=== PATIENT | male | born 1940 | race American Indian/Alaskan Native ===

== ENCOUNTER 2019-02-14 10:50 | Emergency (ER) | payer MEDICARE ==
[2019-02-14] MEDS ORDERED: Sodium Chloride 0.9% 10 ML Syringe FLUSH PRN (11:07)
--- NOTE | 2019-02-14 11:18 | EDM.PDOC ---
ED HPI GENERAL MEDICAL PROBLEM - General Chief Complaint: Abdominal Pain Stated Complaint: DIZZY AND FEELS HE CANT RELEASE ABD GAS Time Seen by Provider: 02/14/19 11:02 Source of Information: Reports: Patient, Family History Limitations: Reports: No Limitations - History of Present Illness INITIAL COMMENTS - FREE TEXT/NARRATIVE: Patient is an unfortunate 78-year-old male who presents today with complaint of constipation. Patient reports that he has not had a bowel movement the last 4 days despite taking laxatives at home. Patient has chronic renal failure and is on hemodialysis he is scheduled to have hemodialysis later today. Patient reports he does have some minor abdominal cramping and some nausea no vomiting is able to tolerate by mouth food and fluids well. No chest pain or shortness of breath no cough congestion or runny nose. No medical emesis no hematochezia and no melena patient also reports that after he eats he has dizzy spells this happens occasionally and isn't matter what he eats for few minutes and then it resolves. Patient took milk of magnesia at home with no improvement in symptoms - Related Data Allergies Allergy/AdvReac Type Severity Reaction Status Date / Time azithromycin [From Zithromax] Allergy Hypertensio Verified 02/14/19 11:07 n Home Meds: Home Meds KCl/Na Sulf,Bicarb,Cl/PEG 3351 [GoLytely] 4,000 ml PO ONETIME #1 bottle [Rx] ED ROS GENERAL - Review of Systems Review Of Systems: See Below Constitutional: Denies: Fever, Chills GI/Abdominal: Reports: Abdominal Pain, Constipation, Nausea. Denies: Melena, Vomiting Neurological: Reports: Dizziness. Denies: Confusion ED EXAM, GI/ABD - Physical Exam Exam: See Below Exam Limited By: No Limitations General Appearance: Alert, WD/WN, Mild Distress Ears: Normal External Exam, Normal Canal, Hearing Grossly Normal, Normal TMs Nose: Normal Inspection, Normal Mucosa, No Blood Throat/Mouth: Normal Inspection, Normal Lips, Normal Teeth, Normal Gums, Normal Oropharynx, Normal Voice, No Airway Compromise Head: Atraumatic, Normocephalic Neck: Normal Inspection, Supple, Non-Tender, Full Range of Motion Respiratory/Chest: No Respiratory Distress, Lungs Clear, Normal Breath Sounds, No Accessory Muscle Use, Chest Non-Tender, Other (Johnnie catheter right chest) Cardiovascular: Normal Peripheral Pulses, Regular Rate, Rhythm, No Edema, No Gallop, No JVD, No Murmur, No Rub GI/Abdominal Exam: Normal Bowel Sounds, Soft, Non-Tender, No Organomegaly, No Distention, No Abnormal Bruit, No Mass, Pelvis Stable Back Exam: Normal Inspection, Full Range of Motion, NT Extremities: Normal Inspection, Normal Range of Motion, Non-Tender, No Pedal Edema, Normal Capillary Refill, Other (AV graft left upper extremity positive [place] positive thrill) Neurological: Alert Psychiatric: Normal Affect Skin Exam: Warm, Dry, No Rash Course - Vital Signs Last Recorded V/S: Last Vital Signs Temp 97.6 F 02/14/19 11:00 Pulse 53 L 02/14/19 11:00 Resp 20 02/14/19 11:00 BP 126/59 L 02/14/19 11:00 Pulse Ox 98 02/14/19 11:00 - Orders/Labs/Meds Orders: Active Orders 24 hr Category Date Time Status Abdomen 2V AP Flat Upright [CR] Stat Exams 02/14/19 11:07 Taken Sodium Chloride 0.9% [Saline Flush] Med 02/14/19 11:07 Active 10 ml FLUSH ASDIRECTED PRN Saline Lock Insert [OM.PC] Stat Oth 02/14/19 11:07 Ordered Medication Orders Sodium Chloride (Saline Flush) 10 ml FLUSH ASDIRECTED PRN PRN Reason: Keep Vein Open Labs: Laboratory Tests 02/14/19 02/14/19 Range/Units 11:25 11:25 WBC 7.34 (4.23-9.07) K/mm3 RBC 4.07 L (4.63-6.08) M/mm3 Hgb 10.7 L (13.7-17.5) gm/dl Hct 34.2 L (40.1-51.0) % MCV 84.0 (79.0-92.2) fl MCH 26.3 (25.7-32.2) pg MCHC 31.3 L (32.2-35.5) g/dl RDW Std Deviation 46.7 H (35.1-43.9) fL Plt Count 258 (163-337) K/mm3 MPV 8.9 L (9.4-12.3) fl Neut % (Auto) 64.3 (34.0-67.9) % Lymph % (Auto) 14.9 L (21.8-53.1) % [place] % (Auto) 9.0 (5.3-12.2) % Eos % (Auto) 10.9 H (0.8-7.0) Baso % (Auto) 0.8 (0.1-1.2) % Neut # (Auto) 4.72 (1.78-5.38) K/mm3 Lymph # (Auto) 1.09 L (1.32-3.57) K/mm3 [place] # (Auto) 0.66 (0.30-0.82) K/mm3 Eos # (Auto) 0.80 H (0.04-0.54) K/mm3 Baso # (Auto) 0.06 (0.01-0.08) K/mm3 Sodium 141 (136-145) mEq/L Potassium 3.8 (3.5-5.1) mEq/L Chloride 101 (98-107) mEq/L Carbon Dioxide 31 (21-32) mEq/L Anion Gap 12.8 (5-15) BUN 27 H D (7-18) mg/dL Creatinine 4.6 H D (0.7-1.3) mg/dL Est Cr Clr Drug Dosing 11.56 mL/min Estimated GFR (MDRD) 12 (>60) mL/min BUN/Creatinine Ratio 5.9 L (14-18) Glucose 152 H (83-115) mg/dL Calcium 9.3 (8.5-10.1) mg/dL Total Bilirubin 0.5 (0.2-1.0) mg/dL AST 17 (15-37) U/L ALT 18 (16-63) U/L Alkaline Phosphatase 104 (46-116) U/L Total Protein 6.5 (6.4-8.2) g/dl Albumin 3.4 (3.4-5.0) g/dl Globulin 3.1 gm/dL Albumin/Globulin Ratio 1.1 (1-2) Meds: Medications Generic Name Dose Route Start Last Admin Trade Name Freq PRN Reason Stop Dose Admin Sodium Chloride 10 ml 02/14/19 11:07 Saline Flush FLUSH ASDIRECTED PRN Keep Vein Open - Re-Assessments/Exams Free Text/Narrative Re-Assessment/Exam: 02/14/19 12:09 Two-view abdomen interpreted by me TONI Departure - Departure Time of Disposition: 12:10 Disposition: Home, Self-Care 01 Condition: Good Clinical Impression: Constipation Qualifiers: Constipation type: unspecified constipation type Qualified Code(s): K59.00 - Constipation, unspecified - Discharge Information Prescriptions: KCl/Na Sulf,Bicarb,Cl/PEG 3351 [GoLytely] 4,000 ml PO ONETIME #1 bottle Referrals: PCP,Not In Area [Primary Care Provider] - Forms: ED Department Discharge Additional Instructions: Home, rest, if no results from magnesium citrate in 12 hours fill and take prescription, return as needed for worsening condition Sepsis Event Note - Evaluation Sepsis Screening Result: No Definite Risk - Focused Exam Vital Signs: Vital Signs Temp Pulse Resp BP Pulse Ox 02/14/19 11:00 97.6 F 53 L 20 126/59 L 98 Date Exam was Performed: 02/14/19 Time Exam was Performed: 12:09 - My Orders Last 24 Hours: My Active Orders 02/14/19 11:07 Abdomen 2V AP Flat Upright [CR] Stat Sodium Chloride 0.9% [Saline Flush] 10 ml FLUSH ASDIRECTED PRN Saline Lock Insert [OM.PC] Stat - Assessment/Plan Last 24 Hours: My Active Orders 02/14/19 11:07 Abdomen 2V AP Flat Upright [CR] Stat Sodium Chloride 0.9% [Saline Flush] 10 ml FLUSH ASDIRECTED PRN Saline Lock Insert [OM.PC] Stat
[2019-02-14] MEDS ORDERED: Magnesium Citrate Solution 296 ML Bottle PO ONE (12:11)
--- NOTE | 2019-02-14 14:09 | CR ---
Abdomen: Supine and upright views of the abdomen were obtained. Comparison: No previous abdominal x-ray. Mild diffuse disc space narrowing within the spine with endplate osteophytes. Surgical clips are seen within the pelvis. Vascular calcification is noted. Bowel gas pattern appears normal. No free air is seen. Impression: 1. Findings as noted above. 2. Nothing acute is appreciated on two-view abdominal x-ray. Diagnostic code #2 This report was dictated in [place] Standard Time
== END 2019-02-14 12:45 | disposition home or self-care (01) ==
LOC: JD.ED 10:50
DX: K59.00 Constipation, unspecified (principal); N18.9 Chronic kidney disease, unspecified; Z99.2 Dependence on renal dialysis; Z88.1 Allergy status to other antibiotic agents
CPT/HCPCS: 36415; 74019; 80053; 82962; 85025; 99283; A9270

== ENCOUNTER 2019-04-26 14:32 | Emergency (ER) | payer MEDICARE ==
--- NOTE | 2019-04-26 15:07 | EDM.PDOC ---
ED HPI GENERAL MEDICAL PROBLEM - General Chief Complaint: Chest Pain Stated Complaint: SOB Time Seen by Provider: 04/26/19 15:03 - History of Present Illness INITIAL COMMENTS - FREE TEXT/NARRATIVE: 78-year-old male presents the emergency room with some shortness of breath. Patient has a nebulizer at home but does not always use it he has been off his steroids and albuterol for a while now. Today's hoping to get some oral steroids. Patient has a little bit of a cough that is nonproductive he denies fevers or chills. He came over here after finishing up dialysis today. The patient has been on dialysis since his last December. His leg edema does not seem to be getting worse. He is just noticed increasing wheezing and shortness of breath he does not have a productive cough. Right Chest Pain Score (Numeric/FACES): 6 - Related Data Allergies Allergy/AdvReac Type Severity Reaction Status Date / Time azithromycin [From Zithromax] Allergy Hypertensio Verified 04/26/19 14:45 n Home Meds: Home Meds Carvedilol [Coreg] 25 mg PO DAILY 04/26/19 [History] Furosemide 40 mg PO BID 04/26/19 [History] hydrALAZINE [Apresoline] 10 mg PO BID 04/26/19 [History] predniSONE [Prednisone] 40 mg PO Q24H #10 tablet 04/26/19 [Rx] Past Medical History HEENT History: Reports: Cataract, Impaired Vision Other HEENT History: wears eyeglasses. Cardiovascular History: Reports: Hypertension Respiratory History: Reports: Bronchitis, Recurrent Gastrointestinal History: Reports: PUD Genitourinary History: Reports: Chronic Renal Insuffiency, Dialysis, Renal Disease Musculoskeletal History: Reports: Fracture, Other (See Below) Other Musculoskeletal History: Chronic Right Knee Pain Neurological History: Reports: None Psychiatric History: Reports: None Endocrine/Metabolic History: Reports: Diabetes, Type II, Obesity/BMI 30+ Hematologic History: Reports: Anemia, Iron Deficiency Immunologic History: Reports: None Oncologic (Cancer) History: Reports: Prostate Dermatologic History: Reports: None - Infectious Disease History Infectious Disease History: Reports: Chicken Pox, Measles, Mumps - Past Surgical History HEENT Surgical History: Reports: Cataract Surgery Cardiovascular Surgical History: Reports: Coronary Artery Stent Male Surgical History: Reports: Other (See Below) Other Male Surgeries/Procedures: Dialysis Catheter and Fistula Placed Social & Family History - Tobacco Use Smoking Status *Q: Never Smoker - Caffeine Use Caffeine Use: Reports: Soda - Recreational Drug Use Recreational Drug Use: No ED ROS GENERAL - Review of Systems Review Of Systems: See Below Constitutional: Reports: No Symptoms HEENT: Reports: No Symptoms Respiratory: Reports: Shortness of Breath, Wheezing, Cough. Denies: Sputum Cardiovascular: Reports: Dyspnea on Exertion. Denies: Chest Pain Endocrine: Reports: No Symptoms GI/Abdominal: Reports: No Symptoms : Reports: No Symptoms Skin: Reports: No Symptoms Neurological: Reports: No Symptoms ED EXAM, GENERAL - Physical Exam Exam: See Below Exam Limited By: No Limitations General Appearance: Alert, No Apparent Distress Head: Atraumatic, Normocephalic Neck: Normal Inspection, Supple, Non-Tender, Full Range of Motion Respiratory/Chest: No Respiratory Distress, Decreased Breath Sounds, Wheezing. No: Crackles, Rales, Rhonchi Cardiovascular: Regular Rate, Rhythm, No Murmur GI/Abdominal: Normal Bowel Sounds, Soft, Non-Tender Back Exam: Normal Inspection. No: CVA Tenderness (L), CVA Tenderness (R) Extremities: Normal Inspection, Pedal Edema (Mild bilaterally) Neurological: Alert, Oriented, Normal Cognition Course - Vital Signs Last Recorded V/S: Last Vital Signs Temp 36.4 C 04/26/19 14:38 Pulse 59 L 04/26/19 14:38 Resp 16 04/26/19 14:38 BP 185/65 H 04/26/19 14:38 Pulse Ox 96 04/26/19 15:26 - Orders/Labs/Meds Orders: Active Orders 24 hr Category Date Time Status EKG Documentation Completion [RC] ASDIRECTED Care 04/26/19 14:42 Active RT Aerosol Therapy [RC] ASDIRECTED Care 04/26/19 15:26 Active Chest 1V Frontal [CR] Stat Exams 04/26/19 14:36 Taken EKG 12 Lead [EK] Stat Ther 04/26/19 14:42 Ordered Labs: Laboratory Tests 04/26/19 04/26/19 04/26/19 Range/Units 14:45 14:45 14:45 WBC 9.21 H (4.23-9.07) K/mm3 RBC 4.62 L (4.63-6.08) M/mm3 Hgb 12.4 L D (13.7-17.5) gm/dl Hct 37.8 L (40.1-51.0) % MCV 81.8 (79.0-92.2) fl MCH 26.8 (25.7-32.2) pg MCHC 32.8 (32.2-35.5) g/dl RDW Std Deviation 45.0 H (35.1-43.9) fL Plt Count 152 L D (163-337) K/mm3 MPV 10.1 (9.4-12.3) fl Neut % (Auto) 77.7 H (34.0-67.9) % Lymph % (Auto) 7.9 L (21.8-53.1) % [place] % (Auto) 2.9 L (5.3-12.2) % Eos % (Auto) 10.7 H (0.8-7.0) Baso % (Auto) 0.4 (0.1-1.2) % Neut # (Auto) 7.14 H (1.78-5.38) K/mm3 Lymph # (Auto) 0.73 L (1.32-3.57) K/mm3 [place] # (Auto) 0.27 L (0.30-0.82) K/mm3 Eos # (Auto) 0.99 H (0.04-0.54) K/mm3 Baso # (Auto) 0.04 (0.01-0.08) K/mm3 Manual Slide Review Abnormal smear D-Dimer, Quantitative 9.39 H (0.19-0.50) mg/L Sodium 140 (136-145) mEq/L Potassium 4.2 (3.5-5.1) mEq/L Chloride 102 (98-107) mEq/L Carbon Dioxide 30 (21-32) mEq/L Anion Gap 12.2 (5-15) BUN 41 H (7-18) mg/dL Creatinine 3.8 H (0.7-1.3) mg/dL Est Cr Clr Drug Dosing 13.99 mL/min Estimated GFR (MDRD) 15 (>60) mL/min BUN/Creatinine Ratio 10.8 L (14-18) Glucose 111 (83-115) mg/dL Calcium 9.1 (8.5-10.1) mg/dL Total Bilirubin 0.7 (0.2-1.0) mg/dL AST 25 (15-37) U/L ALT 32 (16-63) U/L Alkaline Phosphatase 94 (46-116) U/L Troponin I < 0.017 (0.00-0.056) ng/mL Total Protein 7.7 (6.4-8.2) g/dl Albumin 3.9 (3.4-5.0) g/dl Globulin 3.8 gm/dL Albumin/Globulin Ratio 1.0 (1-2) Meds: Medications Discontinued Medications Generic Name Dose Route Start Last Admin Trade Name Freq PRN Reason Stop Dose Admin Albuterol/Ipratropium 3 ml 04/26/19 15:26 04/26/19 15:39 Duoneb 3.0-0.5 Mg/3 Ml NEB 04/26/19 15:27 3 ml ONETIME ONE Administration Prednisone 60 mg 04/26/19 15:50 04/26/19 15:55 Prednisone PO 04/26/19 15:51 60 mg ONETIME ONE Administration - Re-Assessments/Exams Free Text/Narrative Re-Assessment/Exam: 04/26/19 15:51 Feels much better after nebulizer treatment. On repeat examination he is moving air better but he still little tight and still has an occasional wheeze. But he feels much better and really wants to go home. We discussed oral steroids I think he might benefit from a brief course of them so we will go ahead and do this. He is instructed to use his steroid nebulizers as directed and he can use his albuterol nebulizers up to 4 times a day. Because of protocol labs the patient has had an elevated d-dimer. The patient has dialysis he is got significant bruising on his arm where the shunt is and the shunt is less than a month old and does not always use sometimes the temporary dialysis catheter is used. I suspect that is why the d-dimer is elevated. Has not had any recent chest pain or chest pressure nothing like pleuritic pain. He has had some shortness of breath. I discussed this with the patient in detail and he agrees not to pursue a CTA of his chest at this time. 04/26/19 16:30 He sounds a little bit better than the last time I checked him we will discharge him home. Departure - Departure Time of Disposition: 16:31 Disposition: Home, Self-Care 01 Clinical Impression: COPD (chronic obstructive pulmonary disease) Prescriptions: predniSONE [Prednisone] 40 mg PO Q24H #10 tablet Referrals: Shey Hawkins NP [Primary Care Provider] - Forms: ED Department Discharge Additional Instructions: Return to the emergency room with any questions or problems. Follow-up with your lung doctor as scheduled. Take the prednisone as directed. Start your steroid nebulizer treatment as directed every day you may use your albuterol up to 4 times a day. Sepsis Event Note - Evaluation Sepsis Screening Result: No Definite Risk - Focused Exam Vital Signs: Vital Signs Temp Pulse Resp BP Pulse Ox Pulse Ox 04/26/19 15:26 96 04/26/19 14:38 36.4 C 59 L 16 185/65 H 95 Date Exam was Performed: 04/26/19 Time Exam was Performed: 16:30 - My Orders Last 24 Hours: My Active Orders 04/26/19 14:36 Chest 1V Frontal [CR] Stat 04/26/19 14:42 EKG Documentation Completion [RC] ASDIRECTED EKG 12 Lead [EK] Stat 04/26/19 15:26 RT Aerosol Therapy [RC] ASDIRECTED - Assessment/Plan Last 24 Hours: My Active Orders 04/26/19 14:36 Chest 1V Frontal [CR] Stat 04/26/19 14:42 EKG Documentation Completion [RC] ASDIRECTED EKG 12 Lead [EK] Stat 04/26/19 15:26 RT Aerosol Therapy [RC] ASDIRECTED
[2019-04-26] MEDS ORDERED: Albuterol/Ipratropium 3.0-0.5 MG/3 ML Neb Soln NEB ONE (15:26)
[2019-04-26] MEDS ORDERED: predniSONE 20 MG Tab PO ONE (15:50)
--- NOTE | 2019-04-27 07:45 | CR ---
Chest: Portable view of the chest was obtained. Comparison: No previous chest imaging. Right-sided dialysis catheter appears to be present. Heart size is within normal limits for portable technique. Tortuous thoracic aorta is seen with atherosclerotic calcification. Bony structures are osteopenic. Degenerative change is scattered within the spine. Lungs show no acute parenchymal change. Impression: 1. Findings as noted above. 2. Nothing acute is appreciated on portable chest x-ray. Diagnostic code #2 This report was dictated in [place] Standard Time
== END 2019-04-26 16:44 | disposition home or self-care (01) ==
LOC: JD.ED 14:32
DX: J44.9 Chronic obstructive pulmonary disease, unspecified (principal); I12.9 Hypertensive chronic kidney disease with stage 1 through stage 4 chronic kidney disease, or unspecified chronic kidney disease; N18.9 Chronic kidney disease, unspecified; E11.22 Type 2 diabetes mellitus with diabetic chronic kidney disease; Z99.2 Dependence on renal dialysis; E66.9 Obesity, unspecified; Z95.5 Presence of coronary angioplasty implant and graft; Z79.899 Other long term (current) drug therapy; Z88.1 Allergy status to other antibiotic agents
CPT/HCPCS: 36415; 71045; 80053; 84484; 85025; 85379; 93005; 94640; 99285; A9270; 93010; 99283; J7620-GY

== ENCOUNTER 2019-10-10 12:24 | Emergency (ER) | payer MEDICARE ==
--- NOTE | 2019-10-10 13:29 | CR ---
Chest: Portable view of the chest was obtained. Comparison: Previous chest x-ray of 04/26/19. Slight atelectasis or possibly minimal pleural effusions. Pulmonary vessels are mildly congested. Heart is enlarged. Tortuous thoracic aorta is seen with atherosclerotic calcification. Old healed left clavicle fracture is noted. Scattered degenerative change is noted within the spine. Impression: 1. Findings felt compatible with CHF. 2. Other nonacute findings as noted above. Diagnostic code #3 Study was dictated in MDT
[2019-10-10] MEDS ORDERED: predniSONE 20 MG Tab PO ONE (13:31)
[2019-10-10] MEDS ORDERED: Furosemide 40 MG Tab PO ONE (13:31)
--- NOTE | 2019-10-10 14:05 | EDM.PDOC ---
ED HPI GENERAL MEDICAL PROBLEM - General Chief Complaint: Respiratory Problem Stated Complaint: SOB Time Seen by Provider: 10/10/19 12:38 Source of Information: Reports: Patient, RN Notes Reviewed - History of Present Illness INITIAL COMMENTS - FREE TEXT/NARRATIVE: 79 yr old male comes in with shortness of breath. He missed 1 or 2 runs of dialysis last week. He was supposed to get a run while traveling to [place] but did ot get that done. It sounds like his last dialysis was last Thursday 6 days ago. His breathing is OK at rest but he is short of breath walking. No cough, fever or chills. No chest or abd pain. - Related Data Allergies Allergy/AdvReac Type Severity Reaction Status Date / Time azithromycin [From Zithromax] Allergy Hypertensio Verified 04/26/19 14:45 n Home Meds: Home Meds Biotin/FA/Vit C/Vit B Complex [Nephrocaps] 1 tab PO DAILY 10/10/19 [History] Calcium Acetate 2 tab PO TID 10/10/19 [History] Clopidogrel Bisulfate [Plavix] 75 mg PO DAILY 10/10/19 [History] Darbepoetin Garrett [Aranesp] 25 mcg IV ASDIRECTED 10/10/19 [History] Fibrinogen/Thrombin(Human Alvino) [Evarrest 2"X4" Patch] 1,000 unit TOP ASDIRECTED 10/10/19 [History] Furosemide 40 mg PO BID 10/10/19 [History] Heparin Sodium,Porcine/PF [Heparin 2,000 Unit/2 ml Vial] 1,000 unit TUTHSA 10/10/19 [History] Heparin Sodium,Porcine/PF [Heparin 2,000 Unit/2 ml Vial] 2,000 unit IV TUTA 10/10/19 [History] Isosorbide Mononitrate [Imdur] 30 mg PO DAILY 10/10/19 [History] Ondansetron [Zofran] 2 mg IV Q4H PRN 10/10/19 [History] Simvastatin 40 mg PO DAILY 10/10/19 [History] Sod Ferric Gluc Complex/Suc [Ferrlecit 62.5 mg/5 ml Vial] 125 mg IV SA 10/10/19 [History] amLODIPine Besylate [Amlodipine Besylate] 10 mg PO DAILY 10/10/19 [History] carvediloL [Carvedilol] 12.5 mg PO BEDTIME 10/10/19 [History] carvediloL [Coreg] 25 mg PO DAILY 10/10/19 [History] hydrALAZINE [Apresoline] 10 mg PO Q8HR 10/10/19 [History] Past Medical History HEENT History: Reports: Cataract, Impaired Vision Other HEENT History: wears eyeglasses. Cardiovascular History: Reports: Hypertension Respiratory History: Reports: Bronchitis, Recurrent Gastrointestinal History: Reports: PUD Genitourinary History: Reports: Dialysis, Renal Disease Musculoskeletal History: Reports: Fracture Other Musculoskeletal History: Chronic Right Knee Pain Neurological History: Reports: None Psychiatric History: Reports: None Endocrine/Metabolic History: Reports: Diabetes, Type II Hematologic History: Reports: Anemia, Iron Deficiency Immunologic History: Reports: None Oncologic (Cancer) History: Reports: Prostate Dermatologic History: Reports: None - Infectious Disease History Infectious Disease History: Reports: Chicken Pox, Measles, Mumps - Past Surgical History HEENT Surgical History: Reports: Cataract Surgery Cardiovascular Surgical History: Reports: Coronary Artery Stent Social & Family History - Family History Family Medical History: Noncontributory - Tobacco Use Smoking Status *Q: Former Smoker Used Tobacco, but Quit: Yes Month/Year Tobacco Last Used: 1979 - Caffeine Use Caffeine Use: Reports: Soda ED ROS GENERAL - Review of Systems Review Of Systems: See Below Constitutional: Denies: Fever, Chills, Diaphoresis HEENT: Reports: No Symptoms Respiratory: Reports: Shortness of Breath. Denies: Pleuritic Chest Pain, Cough Cardiovascular: Denies: Chest Pain GI/Abdominal: Denies: Abdominal Pain, Nausea, Vomiting Musculoskeletal: Denies: Shoulder Pain, Arm Pain Skin: Reports: No Symptoms Neurological: Reports: No Symptoms ED EXAM, GENERAL - Physical Exam Exam: See Below General Appearance: Alert, No Apparent Distress (at rest) Eye Exam: Bilateral Eye: PERRL Throat/Mouth: Normal Inspection Head: Atraumatic Neck: Supple Respiratory/Chest: No Respiratory Distress, Lungs Clear, Normal Breath Sounds, Rales (very mild bilat bases). No: Rhonchi, Wheezing Cardiovascular: Regular Rate, Rhythm GI/Abdominal: Soft, Non-Tender Extremities: Pedal Edema (mild to mod bilat) Neurological: Alert, Oriented, No Motor/Sensory Deficits Skin Exam: Warm, Dry, Normal Color Course - Vital Signs Last Recorded V/S: Last Vital Signs Temp 97.6 F 10/10/19 12:38 Pulse 78 10/10/19 12:38 Resp 20 10/10/19 12:38 BP 152/135 H 10/10/19 12:38 Pulse Ox 92 L 10/10/19 12:38 - Orders/Labs/Meds Meds: Medications Discontinued Medications Generic Name Dose Route Start Last Admin Trade Name Ara PRN Reason Stop Dose Admin Furosemide 40 mg 10/10/19 13:31 10/10/19 13:37 Lasix PO 10/10/19 13:32 40 mg ONETIME ONE Administration Prednisone 40 mg 10/10/19 13:31 10/10/19 13:38 Prednisone PO 10/10/19 13:32 40 mg ONETIME ONE Administration - Re-Assessments/Exams Free Text/Narrative Re-Assessment/Exam: 10/10/19 14:10 CXR does show mild pul vasc congestion, his sats are running 92 to 94 % at rest. He states his kidneys do make some urine. He is also requesting prednisone. He states that "really helps my breathing". Have given lasix 40 mg and prednisone 40 mg PO. He feels that he will be able to make it OK until dialysis tomorrow as long as he doesn't walk too much. Discharge instr. as documented. Departure - Departure Time of Disposition: 14:03 Disposition: Home, Self-Care 01 Condition: Fair Clinical Impression: Dyspnea, Congestive heart failure, Fluid retention, Chronic renal failure - Discharge Information Instructions: Shortness of Breath, Adult Referrals: PCP,Not In Area [Primary Care Provider] - Forms: ED Department Discharge Additional Instructions: You have been given furosemide 40 mg and prednisone 40 mg while here in the ED. Rest. Your breathing will be better in a sitting position. Dialysis tomorrow as planned. Return to ED as needed. Sepsis Event Note (ED) - Evaluation Sepsis Screening Result: No Definite Risk - Focused Exam Vital Signs: Vital Signs Temp Pulse Resp BP Pulse Ox 10/10/19 12:38 97.6 F 78 20 152/135 H 92 L
== END 2019-10-10 14:29 | disposition home or self-care (01) ==
LOC: JD.ED 12:24
DX: I13.0 Hypertensive heart and chronic kidney disease with heart failure and stage 1 through stage 4 chronic kidney disease, or unspecified chronic kidney disease (principal); I50.9 Heart failure, unspecified; N18.9 Chronic kidney disease, unspecified; E11.22 Type 2 diabetes mellitus with diabetic chronic kidney disease; Z99.2 Dependence on renal dialysis; Z87.891 Personal history of nicotine dependence; Z79.02 Long term (current) use of antithrombotics/antiplatelets; Z79.01 Long term (current) use of anticoagulants
CPT/HCPCS: 71045; 99284; A9270; J7512; 99283

== ENCOUNTER 2021-11-05 10:45 | Emergency (ER) | payer MEDICARE ==
[2021-11-05] MEDS ORDERED: Sodium Chloride 0.9% 10 ML Syringe FLUSH PRN ×2 (11:45→12:46)
[2021-11-05] MEDS ORDERED: HYDROmorphone 0.5 MG/0.5 ML Syringe IVPUSH ONE ×2 (11:46→12:36)
[2021-11-05] MEDS ORDERED: Ondansetron 4 MG/2 ML SDV IVPUSH ONE (11:46)
[2021-11-05] MEDS ORDERED: Sodium Chloride 0.9% 1,000 ML IV SCH (12:00)
[2021-11-05 12:36] LABS: ESTIMATED GFR 7 mL/min (>60)
[2021-11-05] MEDS ORDERED: Iopamidol 612 MG/ML 100 ML Bottle IVPUSH ONE (12:46)
[2021-11-05] MEDS ORDERED: Polyethylene Glycol 3350 Powder 17 GM Packet PO ONE (13:38)
== END 2021-11-05 13:55 | disposition home or self-care (01) ==
LOC: JD.ED 10:45
DX: R10.31 Right lower quadrant pain (principal); I10 Essential (primary) hypertension; E11.9 Type 2 diabetes mellitus without complications; Z88.1 Allergy status to other antibiotic agents; Z79.899 Other long term (current) drug therapy; Z79.82 Long term (current) use of aspirin; Z79.4 Long term (current) use of insulin; Z87.891 Personal history of nicotine dependence
CPT/HCPCS: 36415; 74177; 80053; 83605; 83735; 85025; 86140; 87040; 93005; 96361; 96374; 96375; 96376; 99284; A9270; J1170; J2405; J3490; J7030; Q9967

== ENCOUNTER 2021-11-24 06:16 | Emergency (ER) | payer MEDICARE ==
[2021-11-24] MEDS ORDERED: fentaNYL 100 MCG/2 ML SDV IVPUSH ONE (06:54)
[2021-11-24] MEDS ORDERED: Piperacillin/Tazobactam 4.5 GM in Sodium Chloride 0.9% 100 ML IV ONE (09:22)
[2021-11-24] MEDS ORDERED: HYDROmorphone 0.5 MG/0.5 ML Syringe IVPUSH ONE (10:08)
[2021-11-24] MEDS ORDERED: Potassium Chloride 10 MEQ in Premix Bag 1 BAG IV ONE (10:12)
[2021-11-24] MEDS ORDERED: Sodium Chloride 0.9% 1,000 ML IV SCH (10:15)
== END 2021-11-24 10:26 ==
LOC: JD.ED 06:16
DX: R10.31 Right lower quadrant pain (principal); E87.6 Hypokalemia; I12.9 Hypertensive chronic kidney disease with stage 1 through stage 4 chronic kidney disease, or unspecified chronic kidney disease; E11.22 Type 2 diabetes mellitus with diabetic chronic kidney disease; N18.9 Chronic kidney disease, unspecified; D50.9 Iron deficiency anemia, unspecified; E66.9 Obesity, unspecified; Z68.39 Body mass index [BMI] 39.0-39.9, adult; Z87.891 Personal history of nicotine dependence; Z88.1 Allergy status to other antibiotic agents; Z79.02 Long term (current) use of antithrombotics/antiplatelets; Z79.4 Long term (current) use of insulin; Z79.899 Other long term (current) drug therapy; Z20.822 Contact with and (suspected) exposure to COVID-19
CPT/HCPCS: 36415; 71045; 74019; 74176; 80053; 83690; 85025; 94762; 96374; 96375; 99285; J1170; J2543; J3010; J7030; U0002

== ENCOUNTER 2024-04-05 14:54 | Emergency (ER) | payer MEDICARE | END 2024-04-05 17:55 | disposition home or self-care (01) | LOC: JD.ED 14:54 | DX: T82.838A Hemorrhage due to vascular prosthetic devices, implants and grafts, initial encounter (principal); I10 Essential (primary) hypertension; E78.00 Pure hypercholesterolemia, unspecified; I48.91 Unspecified atrial fibrillation; E11.9 Type 2 diabetes mellitus without complications; Z86.16 Personal history of COVID-19; Z88.1 Allergy status to other antibiotic agents; Z79.51 Long term (current) use of inhaled steroids; Z79.02 Long term (current) use of antithrombotics/antiplatelets; Z79.899 Other long term (current) drug therapy | CPT/HCPCS: 12001; 99283 ==

== ENCOUNTER 2024-06-28 16:31 | Emergency (ER) | payer MEDICARE ==
[2024-06-28] MEDS ORDERED: Sodium Chloride 0.9% 10 ML Syringe FLUSH PRN (17:05)
[2024-06-28 17:53] LABS: BASOPHILS PERCENT AUTO 0.2 % (0.0-1.0); HEMATOCRIT 31.3 % (42.0-52.0); HEMOGLOBIN 10.2 gm/dl (14.0-18.0); IMMATURE GRAN ABSOLUTE AUTO 0.02 K/mm3 (0.00-0.05); IMMATURE GRAN PERCENT AUTO 0.3 % (0.0-0.4); LYMPHOCYTES ABSOLUTE AUTO 0.3 K/mm3 (1.0-4.8); LYMPHOCYTES PERCENT AUTO 4.3 % (24.0-44.0); MEAN CORPUSCULAR HEMOGLOBIN 29.1 pg (28.0-32.0); MEAN CORPUSCULAR HGB CONC 32.6 g/dl (32.0-36.0); MEAN CORPUSCULAR VOLUME 89.4 fl (83.0-99.0); MEAN PLATELET VOLUME 10.5 fl (9.4-12.4); MONOCYTES ABSOLUTE AUTO 0.1 K/mm3 (0.0-0.8); MONOCYTES PERCENT AUTO 1.2 % (0.0-8.0); NEUTROPHILS ABSOLUTE AUTO 6.1 K/mm3 (1.8-7.7); PLATELET COUNT,PLT 149 K/mm3 (150-400)
[2024-06-28 18:17] LABS: A/G RATIO 0.9 (1-2); ALBUMIN 3.3 g/dl (3.4-5.0); ANION GAP 20.7 (5-15); BILIRUBIN TOTAL 1.1 mg/dL (0.2-1.0); BUN/CREATININE RATIO 9.4 (14-18); C-REACTIVE PROTEIN 1.77 mg/dL (<0.30); CALCIUM 9.1 mg/dL (8.5-10.1); CREATININE 7.7 mg/dL (0.7-1.3); EST CRCL DRUG DOSING (CG) 6.79 mL/min; POTASSIUM,K 4.7 mEq/L (3.5-5.1); PROTEIN TOTAL,TP 6.9 g/dl (6.4-8.2)
[2024-06-28] MEDS: cefTRIAXone 2 GM Vial IVPUSH ONE (18:25)
[2024-06-28] MEDS: Apixaban 5 MG Tab PO ONE (18:47)
== END 2024-06-28 19:25 | disposition home or self-care (01) ==
LOC: JD.ED 16:31
DX: I82.411 Acute embolism and thrombosis of right femoral vein (principal); L97.519 Non-pressure chronic ulcer of other part of right foot with unspecified severity; I48.91 Unspecified atrial fibrillation; S92.001A Unspecified fracture of right calcaneus, initial encounter for closed fracture; I12.0 Hypertensive chronic kidney disease with stage 5 chronic kidney disease or end stage renal disease; N18.6 End stage renal disease; Z99.2 Dependence on renal dialysis; E11.22 Type 2 diabetes mellitus with diabetic chronic kidney disease; E78.00 Pure hypercholesterolemia, unspecified; Z88.1 Allergy status to other antibiotic agents; Z79.899 Other long term (current) drug therapy; Z79.01 Long term (current) use of anticoagulants; Z86.16 Personal history of COVID-19; X58.XXXA Exposure to other specified factors, initial encounter
CPT/HCPCS: 36415; 73630; 80053; 85025; 86140; 93971; 96374; 99284; A9270; J0696

== ENCOUNTER 2024-07-07 12:08 | Emergency (ER) | payer MEDICARE ==
[2024-07-07 14:11] LABS: BASOPHILS ABSOLUTE AUTO 0.1 K/mm3 (0.0-0.2); BASOPHILS PERCENT AUTO 0.8 % (0.0-1.0); EOSINOPHILS ABSOLUTE AUTO 0.2 K/mm3 (0.0-0.4); EOSINOPHILS PERCENT AUTO 2.9 % (0.0-6.0); HEMATOCRIT 28.6 % (42.0-52.0); HEMOGLOBIN 9.1 gm/dl (14.0-18.0); IMMATURE GRAN ABSOLUTE AUTO 0.03 K/mm3 (0.00-0.05); IMMATURE GRAN PERCENT AUTO 0.5 % (0.0-0.4); LYMPHOCYTES ABSOLUTE AUTO 0.5 K/mm3 (1.0-4.8); LYMPHOCYTES PERCENT AUTO 7.1 % (24.0-44.0); MEAN CORPUSCULAR HEMOGLOBIN 28.6 pg (28.0-32.0); MEAN CORPUSCULAR HGB CONC 31.8 g/dl (32.0-36.0); MEAN CORPUSCULAR VOLUME 89.9 fl (83.0-99.0); MEAN PLATELET VOLUME 10.7 fl (9.4-12.4); MONOCYTES ABSOLUTE AUTO 0.6 K/mm3 (0.0-0.8); MONOCYTES PERCENT AUTO 9.3 % (0.0-8.0); NEUTROPHILS ABSOLUTE AUTO 5.1 K/mm3 (1.8-7.7); NEUTROPHILS PERCENT AUTO 79.4 % (41.0-71.0); PLATELET COUNT,PLT 149 K/mm3 (150-400); RED BLOOD CELL COUNT 3.18 M/mm3 (4.52-5.90); WHITE BLOOD CELL COUNT,WBC 6.47 K/mm3 (3.9-11.3)
[2024-07-07 14:43] LABS: A/G RATIO 0.9 (1-2); ALBUMIN 3.1 g/dl (3.4-5.0); ANION GAP 30.6 (5-15); BILIRUBIN TOTAL 0.8 mg/dL (0.2-1.0); CALCIUM 7.5 mg/dL (8.5-10.1); EST CRCL DRUG DOSING (CG) 3.05 mL/min; PROTEIN TOTAL,TP 6.6 g/dl (6.4-8.2)
[2024-07-07 14:46] LABS: POTASSIUM,K 6.6 mEq/L (3.5-5.1)
[2024-07-07 14:47] LABS: BUN/CREATININE RATIO 10.5 (14-18)
[2024-07-07] MEDS ORDERED: 50% Dextrose in Water 50 ML Syringe IVPUSH ONE (15:59)
[2024-07-07] MEDS ORDERED: Insulin Regular, Human 100 Units/ML 10 ML Vial IV ONE (16:00)
[2024-07-07] MEDS ORDERED: Albuterol 0.083% 2.5 MG/3 ML Neb Soln NEB ONE (16:00)
[2024-07-07] MEDS ORDERED: Furosemide 40 MG/4 ML VIAL IVPUSH ONE (16:01)
[2024-07-07] MEDS ORDERED: Sodium Bicarbonate 8.4% 50 MEQ/50 ML Syringe IVPUSH ONE (16:02)
[2024-07-07] MEDS ORDERED: Calcium Gluconate 10% 1 GM/10 ML SDV IVPUSH ONE (16:02)
[2024-07-07] MEDS ORDERED: Sodium Zirconium Cyclosilicate 10 GM Packet PO SCH (16:15)
== END 2024-07-07 16:00 | disposition left against medical advice (07) ==
LOC: JD.ED 12:08
DX: I13.2 Hypertensive heart and chronic kidney disease with heart failure and with stage 5 chronic kidney disease, or end stage renal disease (principal); N18.6 End stage renal disease; D63.1 Anemia in chronic kidney disease; I50.9 Heart failure, unspecified; E87.5 Hyperkalemia; I48.91 Unspecified atrial fibrillation; E78.00 Pure hypercholesterolemia, unspecified; E11.22 Type 2 diabetes mellitus with diabetic chronic kidney disease; Z99.2 Dependence on renal dialysis; Z88.1 Allergy status to other antibiotic agents; Z79.899 Other long term (current) drug therapy; Z79.02 Long term (current) use of antithrombotics/antiplatelets; Z86.16 Personal history of COVID-19
CPT/HCPCS: 36415; 80053; 85025; 99283